=== PATIENT | male | born 1985 | race Asian ===

== ENCOUNTER 2022-09-01 20:02 | Emergency (ER) | payer MEDICAID ==
[~2022-09-01] VITALS: Ht 185.4 cm; Wt 102.3 kg
[2022-09-01 23:45] VITALS: BP 134/88
[2022-09-02 00:51] LABS: ANION GAP 7 mmol/L (8-16); CALCIUM, TOTAL 9.4 mg/dL (8.8-10.5); CARBON DIOXIDE 31 mmol/L (22-29); CHLORIDE 102 mmol/L (98-107); CREATININE 1.08 mg/dL (0.60-1.30); GLUCOSE,RANDOM 107 mg/dL (70-110); POTASSIUM 3.6 mmol/L (3.5-5.1); SODIUM SERUM 140 mmol/L (136-145); UREA NITROGEN, BLOOD 18 mg/dL (7-18)
[2022-09-02 00:54] LABS: GLOMERULAR FILTR. RATE CALC > 60 mL/min (>60)
[2022-09-02] MEDS ORDERED: SODIUM CHLORIDE 0.9% 100 ML ONE (01:11)
[2022-09-02] MEDS ORDERED: IOHEXOL 350 MG/ML 100 ML VIAL ONE (01:11)
== END 2022-09-02 03:44 | disposition home or self-care (01) ==
LOC: EMS 20:04
DX: S70.12XA Contusion of left thigh, initial encounter (principal); V86.99XA Unspecified occupant of other special all-terrain or other off-road motor vehicle injured in nontraffic accident, initial encounter; Y93.89 Activity, other specified; Y92.89 Other specified places as the place of occurrence of the external cause; Y99.8 Other external cause status
CPT/HCPCS: 99285; 80048; 36415; 73701; Q9967; J7050